=== PATIENT | male | born 1950 | race Caucasian/White ===

== ENCOUNTER 2021-05-08 11:15 | Emergency (ER) | payer MEDICARE, OTHER, MEDICAID ==
[~2021-05-08] VITALS: Ht 165.1 cm; Wt 56.7 kg
[~2021-05-08 11:15] MED LIST: AMIODARONE HCL200 MG PO; CEFUROXIME500 MG PO; DIFLUCAN150 MG PO; FEOSOL325 MG PO; HYTRIN CAP 1 MG1 MG PO; KEFLEX CAP 500500 MG PO; MACROBID 100 M100 MG PO; OMEPRAZOLE20 MG PO; OMNICEF 300 MG300 MG PO; PROTONIX 40 MG40 M1 PO; SYNTHROID25 MCG PO; ZOSYN 3.3753.375 GM INJ
[2021-05-08 12:05] LABS: HEMOGLOBIN 12.6 gm/dl (14.0-17.5); RED BLOOD COUNT 4.72 M/UL (4.20-5.50); WHITE BLOOD COUNT 6.7 K/UL (4.5-11.0)
[2021-05-08 12:39] LABS: BUN/CREATININE RATIO 16 (0-10)
== END 2021-05-08 15:30 | disposition home or self-care (01) ==
LOC: ER1 11:15
PROVIDERS: Emergency Medicine
DX: Z23 Encounter for immunization (principal); U07.1 COVID-19; N18.9 Chronic kidney disease, unspecified
CPT/HCPCS: 71045; 80053; 82550; 82553; 83874; 84484; 85025; 99283; M0243

== ENCOUNTER 2021-07-16 22:50 | Inpatient (IN) | payer MEDICARE, OTHER ==
[~2021-07-16] VITALS: Ht 165.1 cm; Wt 59.0 kg
[~2021-07-16 22:50] MED LIST changes: -SYNTHROID25 MCG PO
[2021-07-17 01:06] LABS: HEMOGLOBIN 14.4 gm/dl (14.0-17.5); RED BLOOD COUNT 4.78 M/UL (4.20-5.50); WHITE BLOOD COUNT 15.3 K/UL (4.5-11.0)
[2021-07-17 06:27] LABS: ADENOVIRUS F 40/41 Not Detected (Negative); ASTROVIRUS Not Detected (Negative); CAMPYLOBACTER Not Detected (Negative); CLOSTRIDIUM DIFFICILE TOX A/B Not Detected (Negative); CRYPTOSPORIDIUM Not Detected (Negative); E.COLI 0157 Not Detected (Negative); ENTAMOEBA HISTOLYTICA Not Detected (Negative); ENTEROAGGREGATIVE E.COLI (EAEC Not Detected (Negative); ENTEROPATHOGENIC E.COLI (EPEC) Not Detected (Negative); ENTEROTOXIGENIC E.COLI (ETEC) Not Detected (Negative); GIARDIA LAMBLIA Not Detected (Negative); NOROVIRUS GI/GII Not Detected (Negative); PLESIOMONAS SHIGELLOIDES Not Detected (Negative); ROTOVIRUS A Not Detected (Negative); SALMONELLA Not Detected (Negative); SAPOVIRUS Not Detected (Negative); SHIG/ENTEROINVAS.ECOLI (EIEC) Not Detected (Negative); SHIGA-LIK TOX.PRO.E.COLI (STEC Not Detected (Negative); VIBRIO Not Detected (Negative); VIBRIO CHOLERAE Not Detected (Negative); YERSINIA ENTEROCOLITICA Not Detected (Negative)
[2021-07-17 10:19] LABS: ADENOVIRUS F 40/41 Not Detected (Negative); ASTROVIRUS Not Detected (Negative); CAMPYLOBACTER Not Detected (Negative); CLOSTRIDIUM DIFFICILE TOX A/B Not Detected (Negative); CRYPTOSPORIDIUM Not Detected (Negative); E.COLI 0157 Not Detected (Negative); ENTAMOEBA HISTOLYTICA Not Detected (Negative); ENTEROAGGREGATIVE E.COLI (EAEC Not Detected (Negative); ENTEROTOXIGENIC E.COLI (ETEC) Not Detected (Negative); GIARDIA LAMBLIA Not Detected (Negative); PLESIOMONAS SHIGELLOIDES Not Detected (Negative); ROTOVIRUS A Not Detected (Negative); SALMONELLA Not Detected (Negative); SAPOVIRUS Not Detected (Negative); SHIG/ENTEROINVAS.ECOLI (EIEC) Not Detected (Negative); SHIGA-LIK TOX.PRO.E.COLI (STEC Not Detected (Negative); VIBRIO Not Detected (Negative); VIBRIO CHOLERAE Not Detected (Negative); YERSINIA ENTEROCOLITICA Not Detected (Negative)
[2021-07-17] MEDS ORDERED: LOSARTAN-HCTZ1 EACH PO (11:59)
[2021-07-17] MEDS ORDERED: ELIQUIS5 MG PO (12:00)
[2021-07-17] MEDS ORDERED: DRISDOL1250 MCG PO (12:00)
[2021-07-17 12:36] LABS: ENTEROPATHOGENIC E.COLI (EPEC) DETECTED (Negative)
[2021-07-17 12:37] LABS: NOROVIRUS GI/GII DETECTED (Negative)
[2021-07-17] MEDS ORDERED: SYNTHROID 50 M50 MCG PO (16:51)
[2021-07-18 06:54] LABS: HEMOGLOBIN 13.3 gm/dl (14.0-17.5); RED BLOOD COUNT 4.46 M/UL (4.20-5.50)
[2021-07-18 07:19] LABS: WHITE BLOOD COUNT 9.2 K/UL (4.5-11.0)
[2021-07-19] MEDS ORDERED: CIPRO500 MG PO ×2 (12:48→13:02)
[2021-07-19] MEDS ORDERED: METRONIDAZOLE250 MG PO ×2 (12:48→13:02)
== END 2021-07-19 15:02 | disposition home or self-care (01) | DRG 372 ==
LOC: ER1 22:50 → CDU 07-17 09:06 → MED SURG 4 07-17 09:06
PROVIDERS: Internal Medicine; Physician Assistant; ADMIT Internal Medicine
DX: A04.4 Other intestinal Escherichia coli infections (principal); E87.2 Acidosis; Z20.822 Contact with and (suspected) exposure to COVID-19; E86.1 Hypovolemia; D50.9 Iron deficiency anemia, unspecified; A08.11 Acute gastroenteropathy due to Norwalk agent; K21.9 Gastro-esophageal reflux disease without esophagitis; I12.9 Hypertensive chronic kidney disease with stage 1 through stage 4 chronic kidney disease, or unspecified chronic kidney disease; N18.9 Chronic kidney disease, unspecified; E03.9 Hypothyroidism, unspecified; E78.00 Pure hypercholesterolemia, unspecified; I48.0 Paroxysmal atrial fibrillation; Z79.01 Long term (current) use of anticoagulants; Z85.46 Personal history of malignant neoplasm of prostate; Z90.49 Acquired absence of other specified parts of digestive tract; Z85.038 Personal history of other malignant neoplasm of large intestine; Z93.3 Colostomy status; Z90.79 Acquired absence of other genital organ(s)
CPT/HCPCS: 36415; 80048; 80053; 81001; 83690; 83735; 85025; 87507; 96374; 96375; 99285; J1956; Q9967; U0002

== ENCOUNTER 2021-10-17 13:57 | Emergency (ER) | payer MEDICARE, OTHER ==
[~2021-10-17 13:57] MED LIST changes: +CIPRO500 MG PO; +DRISDOL1250 MCG PO; +ELIQUIS5 MG PO; +LOSARTAN-HCTZ1 EACH PO; +METRONIDAZOLE250 MG PO; +SYNTHROID 50 M50 MCG PO
[2021-10-17 15:16] LABS: HEMOGLOBIN 13.8 gm/dl (14.0-17.5); RED BLOOD COUNT 4.62 M/UL (4.20-5.50); WHITE BLOOD COUNT 10.7 K/UL (4.5-11.0)
== END 2021-10-17 20:15 | disposition home or self-care (01) ==
LOC: ER1 13:57
PROVIDERS: Physician Assistant
DX: I12.9 Hypertensive chronic kidney disease with stage 1 through stage 4 chronic kidney disease, or unspecified chronic kidney disease (principal); N18.9 Chronic kidney disease, unspecified; R19.7 Diarrhea, unspecified; Z20.822 Contact with and (suspected) exposure to COVID-19; Z93.2 Ileostomy status; Z85.038 Personal history of other malignant neoplasm of large intestine
CPT/HCPCS: 80053; 83605; 83690; 85025; 99284; Q9967; U0002